=== PATIENT | male | born 1930 | race Caucasian/White ===

== ENCOUNTER 2018-02-07 10:29 | Observation (INO) | payer MEDICARE, OTHER ==
[2018-02-07] MEDS ORDERED: Non-Formulary Medication 1 Each (Warfarin [Coumadin] 2.5 MG) PO SCH (17:45)
--- NOTE | 2018-02-08 00:14 | HP ---
ADMISSION DATE: 02/07/2018 REASON FOR VISIT: Feeling poorly, chest tightness, and dizzy spells. HISTORY OF PRESENT ILLNESS: Andi Moraes is an 87-year-old male, seen in room 107. Direct admission from [facility] was seen by Dr. Ridley. He presented with a sense of reduced well-being being the night before some unsettled sleep, complicated dizziness, and some vague chest pain. 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 No known cord disease and has been in good health. Laboratory studies performed at [facility] include normal EKG, normal CBC, electrolytes, and negative troponin. He is admitted for observation and treatment. HOME MEDICATIONS: Include: 1. HCTZ 12.5 mg 1 p.o. daily. 2. Multivitamin. 3. Tamsulosin 0.4 mg at bedtime. 4. Warfarin 2.5 mg 1 p.o. daily. ALLERGIES: No medication, environmental, or latex allergies. PAST MEDICAL HISTORY: Significant for operative procedure, which include previous brain surgery craniotomy about age 59, appendectomy, acute appendicitis, cataract surgery x2, right total knee arthroplasty, and an updated colonoscopy. Chronic illnesses include BPH and hypertension. No other operative procedures, hospitalizations, unusual childhood diseases, major injuries, or fractures. SOCIAL HISTORY: Resides in [place]. Retired [address] in [address] [employer]. is 86, good health. Five children, four sons, one daughter. Smoked remotely in the past. No alcohol consumption. No illicit drug use. FAMILY HISTORY: Negative for early heart disease, diabetes mellitus, or inheritable cancers. REVIEW OF SYSTEMS: CONSTITUTIONAL: Feeling poorly as stated. EYES: Sees well. Cataract surgery. EARS: Some difficulty in crowds, mild tinnitus. OROPHARYNX: Intact dentition. No loose teeth. CHEST: Denies cough, respiratory difficulty, or hemoptysis. CARDIOVASCULAR: Denies chest pain, palpitations, or syncope. GI: Regular predictable stools, no blood in stools. : Nocturia x1. Mild decreased stream. No blood in urine. ORTHOPEDICS: Generalized joint complaints. SKIN: No new lesions, eruptions, or moles. ENDOCRINE: No excessive thirst or urination. ALLERGIC: No chronic cough or skin allergies. PHYSICAL EXAMINATION: VITAL SIGNS: Stable and documented. GENERAL: The patient was oriented to time, place, and person. Speech was fluent. HEENT: Funduscopic benign. Conjunctivae clear. Bright tympanic membranes. Clear nasal discharge. Mouth and oropharynx clear. No intraoral lesions. Tongue midline. Good gag reflex. NECK: Benign. Thyroid small. No adenopathy. No carotid bruits. CHEST: Clear in all lung suarez. No adventitious sounds. HEART: Regular without ectopy or significant murmur. ABDOMEN: Benign. Right lower quadrant appendectomy scar. No hepatosplenomegaly. AND RECTAL: Deferred. EXTREMITIES: Well-perfused. NEUROLOGIC: Oriented x3, reflex symmetric, sensation intact. Gait and station appropriate. LABORATORY STUDIES: See [facility] laboratory studies. INR 4 p.m. today 2.54, therapeutic. Troponin 0.017, negative. CT scan [place] by my interpretation negative. Previous craniotomy surgery. ASSESSMENT: Acute vague, but problematic symptoms, observation indicated. PLAN: We will observe on telemetry. Issues, implications, expectations, results to follow, expectations of short-term stay. /[id number] 0003 TONNY/MISTY
--- NOTE | 2018-02-08 08:47 | CT ---
INDICATION: Dizzy spells this morning. History of brain surgery. CT HEAD WITHOUT CONTRAST: Serial contiguous 2.5 and 5-mm sections were obtained through the brain without contrast, 02/07/2018. No comparison CTs were available. Total Exam DLP = 949.36 mGy-cm. Calcifications are noted in the vertebral and internal carotid arteries. No shift of midline structures is noted. Mastoid air cells and paranasal sinuses appeared to be well aerated, except to note thickening of the linings of the frontal air cells, especially the left frontal air cell. No air-fluid levels were seen, however. Evidence of previous brain surgery is noted with cranial flap. This is seen in the frontal area. 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 The lateral ventricles are significantly prominent, as previously, compatible with significant degree of central atrophy. No finding to suggest a hematoma or hemorrhage could be identified. No finding to strongly suggest an acute thrombotic CVA was seen, with the areas of decreased density in the white matter fairly similar to the previous MRI. IMPRESSION: 1. 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 2. White matter changes extending into the frontoparietal areas bilaterally and especially on the left, which may be on the basis of anoxic encephalopathy, post-surgical change, or possibly moderate to moderately severe microvascular disease - correlate clinically. 3. 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 4. 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 5. Thickening of the lining of the left frontal air cell, raising question of sinusitis in that area - not definitely visualized on the previous MRI. MTDD
[2018-02-08] MEDS ORDERED: Tamsulosin 0.4 MG Cap.ER PO SCH (09:00)
--- NOTE | 2018-02-08 13:30 | PCM.DCSUM1 ---
Discharge Summary - Discharge Data Discharge Date: 02/08/18 Discharge Disposition: Home, Self-Care 01 Condition: Good - Discharge Diagnosis/Problem(s) (1) Complaint of debility and malaise SNOMED Code(s): 428519348 ICD Code: R53.81 - OTHER MALAISE Status: Acute Current Visit: Yes - Patient Summary/Data Consults: Consultations 02/07/18 11:38 PT Evaluation and Treatment [CONS] Routine Please Evaluate and Treat. PT Reason for Consult: wekaness dizzy spells This query below is only for informational purposes and is not editable. - Patient Instructions Driving: Do Not Drive Showering/Bathing: May Shower - Discharge Plan Home Medications: Home Meds Calc/D3/Mag/Zn/Fire Fighting Equipment Specialist/Chad/[place] [Calcium 600 MG Plus Vit D] 1 tab PO DAILY [History] Gluc Zhang Dipo Ch/Jackson Zhang/C/Chad [Glucosamine Chondroitin Caplet] 1 tab PO DAILY 02/07/18 [History] Hydrochlorothiazide 12.5 mg PO DAILY 02/07/18 [History] Multivitamin with Minerals [Multiple Vitamin] 1 tab PO DAILY 02/07/18 [History] Tamsulosin [Flomax] 0.4 mg PO DAILY 02/07/18 [History] Warfarin [Coumadin] 2.5 mg PO DAILY 02/07/18 [History] Referrals: Joaquin Dotson MD [Primary Care Provider] - (7-10 d post hospital follow up. ) - Discharge Summary/Plan Comment DC Time >30 min.: Yes - Patient Data Vitals - Most Recent: Last Vital Signs Temp 97.4 F 02/08/18 08:00 Pulse 78 02/08/18 08:00 Resp 18 02/08/18 08:00 BP 126/86 02/08/18 08:00 Pulse Ox 92 L 02/08/18 08:00 Weight - Most Recent: 107.093 kg Lab Results - Last 24 hrs: Laboratory Results - last 24 hr 02/07/18 02/07/18 Range/Units 16:00 16:00 PT 26.2 H (8.7-11.1) INR 2.54 H (0.89-1.13) Troponin I < 0.017 L (<0.017-0.056) ng/mL Med Orders - Current: Current Medications Non-Formulary Medication (Warfarin [Coumadin]) 2.5 mg PO DAILY ANJUM Tamsulosin HCl (Flomax) 0.4 mg PO DAILY ANJUM
== END 2018-02-08 13:40 | disposition home or self-care (01) ==
LOC: FB.MS 10:47 → INTOOBSV 10:47
PROVIDERS: ADMIT Family Medicine; ATTEND Family Medicine
DX: R53.81 Other malaise (principal); R07.9 Chest pain, unspecified; R42 Dizziness and giddiness; N40.0 Benign prostatic hyperplasia without lower urinary tract symptoms; I10 Essential (primary) hypertension; Z87.891 Personal history of nicotine dependence; Z79.899 Other long term (current) drug therapy; Z79.01 Long term (current) use of anticoagulants
CPT/HCPCS: 36415; 70450; 84484; 85610; 97161-GP